=== PATIENT | male | born 1980 ===

== ENCOUNTER 2023-01-03 13:32 | Emergency (ER) | payer SELFPAY ==
[2023-01-03] MEDS ORDERED: Lidocaine 2% Viscous Solution 15 ML UD PO ONE (13:33)
[2023-01-03] MEDS ORDERED: Benzocaine 20% Topical Spray UD MUCMEM ONE (13:33)
== END 2023-01-03 14:10 | disposition home or self-care (01) ==
LOC: EDBD 13:32 → MW.ED 13:32
DX: K04.7 Periapical abscess without sinus (principal)
CPT/HCPCS: 99282; A9270; 99283

== ENCOUNTER 2023-01-11 09:52 | Emergency (ER) | payer SELFPAY ==
[2023-01-11] MEDS ORDERED: Lidocaine 1% 5 ML VIAL INJECT ONE (14:05)
[2023-01-11] MEDS ORDERED: Bupivacaine 0.5% 10 ML SDV INJECT ONE (14:05)
== END 2023-01-11 14:47 | disposition home or self-care (01) ==
LOC: MW.ED 09:52
DX: K02.9 Dental caries, unspecified (principal)
CPT/HCPCS: 64400; 99282; J3490